=== PATIENT | female | born 1965 | race Caucasian/White ===

== ENCOUNTER 2020-08-12 11:24 | Outpatient (REF) | payer OTHER, SELFPAY ==
--- NOTE | ~2020-08-12 | US_ITS ---
EXAMINATION: US THYROID CLINICAL INFORMATION: Nontoxic multinodular goiter. COMPARISON: Ultrasound soft tissue head/neck thyroid dated 10/23/2019 and 10/31/2018. TECHNIQUE: Linear transducer grayscale and color Doppler examination with attention to the region of the thyroid. FINDINGS: SIZE: Measurements of the thyroid lobes and nodules are given in sagittal, anteroposterior and transverse dimensions respectively. Right Thyroid Lobe: 6.30 x 3.11 x 3.39 cm, volume 34.8 mL. Previously 6.1 x 2.9 x 3.4 cm, volume 31.2 mL. Parenchyma: The gland echotexture is heterogeneous. Thyroid vascularity is increased. Left Thyroid Lobe: 4.20 x 1.10 x 1.30 cm, volume 3.26 mL. Previously 3.7 x 0.90 x 1.1 cm, volume 1.80 mL. Parenchyma: The gland echotexture is heterogeneous. Thyroid vascularity is increased. Isthmus: 0.52 cm in maximum AP dimension. Previously 0.39 cm. Estimated total number of nodules greater than or equal to 1 cm: 1. Econometrics Professor nodules are described as follows: 1. Location: Right mid/inferior. Size: 4.9 x 2.0 x 3.1 cm, volume 23.9 mL. Previously: 4.6 x 3.1 x 3.4 cm, volume 25.3 mL. Nodule characteristics: Composition: Solid/almost completely solid (2). Echogenicity: Isoechoic (1). Shape: Not taller than wide (0). Margins: Smooth (0). Echogenic Foci: Macrocalcifications (1). Punctate echogenic foci (3). ACR TI-RADS total points: 7 Previous: n/a ACR TI-RADS category: 5 Previous: n/a Significant change in size (>/= 20% in 2 dimensions and minimal increase of 2 mm or 50% or greater increase in volume): None Change in features: None Change in ACR TI-RADS risk category: n/a NODES: No lymphadenopathy is seen in the tissue surrounding the thyroid gland. US/US thyroid IMPRESSION: Minimal change in size large right thyroid nodule. ACR TI-RADS RECOMMENDATION REFERENCE: Ultrasound-guided fine-needle aspiration, followup ultrasound, no further follow up. * TR1 (0 point) and TR 2 (2 points): No FNA or follow up * TR3 (3 points): FNA if more than or equal to 2.5 cm in maximum dimension, followup ultrasound in 1, 3 and 5 years if 1.5 to 2.4 cm in maximum dimension. * TR4 (4-6 points): FNA if more than or equal to 1.5 cm in maximum dimension, followup ultrasound in 1, 2, 3 and 5 years if 1 to 1.4 cm in maximum dimension. * TR5 (more than or equal to 7 points): FNA if more than or equal to 1 cm in maximum dimension, followup ultrasound every year for 5 years if 0.5 to 0.9 cm in maximum dimension. * TR3, TR4 or TR5 nodules that are below the size threshold for follow up receive no follow up.
== END 2020-08-12 11:25 | disposition home or self-care (01) ==
LOC: HO.US 11:24
PROVIDERS: Visit Provider Internal Medicine Endocrinology, Diabetes & Metabolism
DX: E04.2 Nontoxic multinodular goiter (principal)
CPT/HCPCS: 76536

== ENCOUNTER 2024-11-19 10:21 | Outpatient (REF) | payer BC, SELFPAY ==
--- OUTSIDE RECORDS SUMMARY | 2024-11-19 11:25 | XMS_ITS | Clinical Summary ---
Author Organization [facility] Address [address] [address] Phone Care Team Providers Care Ged Preparation Teacher Name Role Phone Jodie Costello MD Primary Care Provide r Allergies No known active allergies Medications clonazePAM (KLONOPIN) 0.5 MG tablet Take 0.25 mg by mouth daily. 11/26/2020 Active ibuprofen (ADVIL,MOTRIN) 800 MG tablet Take 800 mg by mouth 2 (two) times a day with meals. 12/02/2020 Active citalopram (CELEXA) 40 MG tablet Take 40 mg by mouth daily. 11/25/2020 Active prasterone, DHEA, (DHEA ORAL) Take 100 mg by mouth daily. 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 Will renew levothyroxine 112 mcg and repeat thyroid function studies in 1 year. Nontoxic uninodular goiter 01/06/2021 Assessment & Plan (01/06/2021 9:30 AM EDT): The patient has a nontoxic uninodular goiter. The right lobe nodule measures 4.9 x 2.0 x 3.1 cm with a volume of 23.9 mm and it has been stable in size. He has been biopsied twice. She has been getting yearly serial ultrasounds and I am not sure that that is necessary. However I have requested repeat ultrasound in approximately 1.5 years so that we can have a baseline ultrasound at [facility]. I have requested this to be done around December 07, 2021. I have asked the patient to contact the radiology department a few months before to ensure that the ultrasound is scheduled. Family History Medical History Relation Comments Aneurysm Father Non-hodgkins Lymphoma Father Rheumatoid arthritis Father Diabetes Mother Hypertension Mother Relation Status Comments Father Mother Alive Social History Tobacco Use Types Packs/Day Years Used Date Smoking Tobacco: Never Smokeless Tobacco: Never Alcohol Use Standard Drinks/Week Comments Yes 3 (1 standard drink = 0.6 oz pur e alcohol) Education Answer Date Recorded Are you interested in more education? Not on leida e 07/31/2022 Are you concerned about learning? Not on file 07/31/2022 No 07/31/2022 No 07/31/2022 Digital Access Answer Date Recorded No 08/29/2022 No 08/29/2022 No 08/29/2022 Reliable internet access at home? Not on file 08/29/2022 Device with a working camera? Not on file Comments Unknown Sex and Gender Information Value Date Recorded Sex Assigned at Not on file Legal Sex Female 10:28 AM EDT Gender Identity Not on file Sexual Orientation Not on file Last Filed Vital Signs Vital Sign Reading Time Taken Comments Blood Pressure 118/70 01/06/2021 8:33 AM EDT Pulse 75 01/06/2021 8:33 AM EDT Temperature - - Respiratory Rate - - Oxygen Saturation 96% 01/06/2021 8:33 AM EDT Inhaled Oxygen Concentration - - Weight 135.4 kg (298 lb 9.6 oz) 01/06/2021 8:33 AM EDT Height 167 cm (5' 5.75 ) 01/06/2021 8:33 AM EDT Body Mass Index 48.57 01/06/2021 8:33 AM EDT Plan of Treatment Health Maintenance Due Date Last Done Comments Adult Td,Tdap Booster 1964 LIPID PANEL 1964 TSH LEVEL 1964 DEPRESSION SCREENING 1976 HEPATITIS C SCREENING 1982 HIV ONE-TIME SCREENING (18-6 5 YEARS) 1982 PAP SMEAR 1985 MAMMOGRAM 2004 COLOGUARD 2009 COLONOSCOPY 2009 COLORECTAL CANCER SCREENING 2009 FIT TEST 2009 FOBT 2009 SIGMOIDOSCOPY 2009 VIRTUAL COLONOSCOPY 2009 PNEUMOCOCCAL VACCINES (50+ years) (1 of 1 - PCV) 2014 ZOSTER VACCINES (1 of 2) 2014 COVID-19 VACCINE (3 - 2023-2 5 season) 2023 05/06/2020, 04/08/2020 RSV VACCINE (1 - 1-dose 75+ series) 2039 SMOKING STATUS SCREENING (On ce After 26 Yrs) Completed 01/06/2021 HEPATITIS A VACCINES Aged Out No long er eligible based on patient's age to complete this topic HIB VACCINES Aged Out No longer eligi ble based on patient's age to complete this topic MENINGOCOCCAL VACCINES (ACWY) Aged Out No longer eligible based on patient's age to complete this topic MENINGOCOCCAL VACCINES (B) Aged Out N o longer eligible based on patient's age to complete this topic Medical Devices Not on file Insurance [address] [place], [place] [address] [place], [place] [address] [address] [place], [place] [address] [facility] [place] Address: [facility] [address] [place] [address] Care Teams Ged Preparation Teacher Relationship Specialty Start Date End Date Jodie Costello MD [address] [place] [address] [address] [place] [address] PCP - General Internal Medicine 10/10/20 Additional Source Comments The information contained in this document represents components of the legal health record. It is not the complete legal health record.[facility]
== END 2024-11-19 10:22 | disposition home or self-care (01) ==
LOC: HO.WFDLDS 10:21
PROVIDERS: Visit Provider Internal Medicine
DX: Z13.89 Encounter for screening for other disorder (principal)

== ENCOUNTER 2024-11-21 11:28 | Outpatient (REF) | payer BC, SELFPAY ==
[2024-11-21 11:54] LABS: Anion Gap 10 (12-20); Blood Urea Nitrogen 20 mg/dL (9-16); Calcium 8.8 mg/dL (8.4-10.2); Carbon Dioxide 26 mmol/L (22-29); Chloride 107 mmol/L (96-108); Estimated Glomerular Filt Rate > 60; Potassium 4.3 mmol/L (3.3-5.1); Sodium 139 mmol/L (135-145)
--- OUTSIDE RECORDS SUMMARY | 2024-11-21 12:48 | XMS_ITS | Clinical Summary ---
Author Organization [facility] Address [address] [address] Phone Care Team Providers Care Dry Pan Operator Name Role Phone Jodie Costello MD Primary [...] we can have a baseline ultrasound at [facility]. I have requested this to be done [...] Medical Devices Not on file Insurance [address] [place], [place] [address] [place], [place] [address] [address] [place], [place] [address]O [facility] Address: [facility] [address] [place] [address] Care Teams Dry Pan Operator Relationship Specialty Start Date End Date Jodie Costello MD [address] [place] [address] [address] [place] [address] PCP - General Internal Medicine 10/10/20 Additional Source Comments The information contained in this document represents components of the legal health record. It is not the complete legal health record.[facility]
== END 2024-11-21 11:29 | disposition home or self-care (01) ==
LOC: HO.WFDLDS 11:28
PROVIDERS: Visit Provider Internal Medicine
DX: Z13.89 Encounter for screening for other disorder (principal)
CPT/HCPCS: 36415; 80048; 82306